=== PATIENT | female | born 1960 | race Caucasian/White ===

== ENCOUNTER 2018-07-03 07:59 | Observation (INO) ==
[2018-07-03] MEDS ORDERED: Nitroglycerin 1 INCH/GM PACKET TP ONE (08:24)
[2018-07-03] MEDS ORDERED: Aspirin 81 MG TAB.CHEW PO ONE (08:24)
--- NOTE | 2018-07-03 08:28 | Emergency Department Note ---
Disposition Clinical Impression: Chest pain Qualifiers: Chest pain type: unspecified Qualified Code(s): R07.9 - Chest pain, unspecified Disposition: Admitted As Inpatient Condition: Good Referrals: Brandon Gerber CNP [Primary Care Provider] - Forms: ED Satisfaction Letter Time of Disposition: 09:39 Chest Pain HPI - General Chief Complaint: ED Chest Pain Stated Complaint: dizzy pressure in chest Time Seen by Provider: 07/03/18 08:10 Source: patient Mode of arrival: ambulatory Limitations: no limitations Vital Signs Reviewed: Yes Nursing Notes Reviewed: Yes - History of Present Illness HPI Narrative: Initial showed temp shaky. Thought her blood sugar was low. Checked it and it was 200. Drank excess water. Then she began with the discomfort in her chest and took her blood pressure which was elevated. Pt complaint: chest pain Onset (ago): hour(s) (2) Time: 06:15 Duration: intermittent, other (Initial duration 15 minutes of more severe pain. Partially relieved with one nitroglycerin sublingual now returned "more light ") Onset: during exertion (Folding laundry) Pain Location: substernal Severity: moderate Severity scale (1-10): 0 Quality: tightness, heaviness, other (Pressure) Pain Radiation: none Improves with: nitroglycerin, rest Worsens with: exertion Context: other (First use of nitroglycerin and 4 years since she had her stent) Associated symptoms: Denies: vomiting, diaphoresis, dyspnea, sense of impending doom, syncope, palpitations, fever, cough, leg swelling Treatments prior to arrival chest pain: aspirin (Took usual morning meds including 81 mg aspirin) - Related Data Home Medications Medication Instructions Recorded Confirmed Aspirin Enteric Coated [Aspirin EC] 81 mg PO DAILY 06/28/15 07/03/18 Clopidogrel [Plavix] 75 mg PO DAILY 06/28/15 07/03/18 Ezetimibe [Zetia] 10 mg PO DAILY 06/28/15 07/03/18 Losartan/Hydrochlorothiazide 1 each PO DAILY 06/28/15 07/03/18 [Hyzaar 100-25 Tablet] Metformin HCl [Glumetza] 1,000 mg PO DAILY 06/28/15 07/03/18 Metoprolol [Lopressor] 25 mg PO BID 06/28/15 07/03/18 Nitroglycerin 0.4 mg SL Q5MIN 06/28/15 07/03/18 Ranitidine HCl [Zantac] 300 mg PO DAILY 06/28/15 07/03/18 Atorvastatin [Lipitor] 80 mg PO HS 10/13/15 07/03/18 Loratadine [Allergy Relief] 10 mg PO DAILY 07/03/18 07/03/18 SitaGLIPtin [Januvia] 100 mg PO DAILY 07/03/18 07/03/18 Allergies Allergy/AdvReac Type Severity Reaction Status Date / Time No Known Allergies Allergy Verified 06/28/15 15:48 All systems ED: reviewed and negative except as stated. Review of Systems: As Per HPI Chest Pain PMH - Past Medical History Medical history: Reports: coronary artery disease, diabetes, GERD, hypertension Surgical history: Reports: angioplasty/stent, hysterectomy Psychiatric history: Reports: no psych history CERAMIC ARTIST history: Reports: no CERAMIC ARTIST history - Social History Smoking Status: Current every day smoker Alcohol use: Reports: none Drug use: Reports: none Physical Exam Constitutional: Patient is oriented to person, place, and time. Skin color is pink. Appears well hydrated, body habitus normal . Non toxic appearing. Head: Normocephalic and atraumatic. External ear exam normal Nose: Nose normal. Mouth/Throat: Uvula is midline, oropharynx is clear and moist and mucous membranes are normal. Eyes: Conjunctivae nl, extraocular motions and lids are normal. Pupils are equal , round, and reactive to light. Neck: Normal range of motion and phonation normal. Neck supple. Cardiovascular: Normal rate, regular rhythm, normal heart sounds. Pulmonary/Chest: No Respiratory distress. Respiratory Effort normal and breath sounds clear. Abdominal: Soft. Normal appearance and bowel sounds are normal. no tenderness, no masses, no guarding, no rebound Musculoskeletal: Good distal pulses. Soft compartments. Brisk cap refill. Extremities: Normal range of motion.Intact peripheral pulses. No Edema. Extremity skin color nl, no calf tenderness or palpable cords. Neurological: GCS 15 Patient is alert and oriented without evidence of obvious motor deficits Skin: Skin is warm, dry and intact. color is normal, cap refill is quick Psychiatric: Patient has anxious mood and affect. Patient speech is normal and behavior is normal. Thought content normal. - General Limitations: no limitations General appearance: alert, in no apparent distress Course Course Narrative: The patient remained stable and pain-free throughout the remainder of her emergency department stay. I spoke with Dr. Connelly at 9:35 AM and the patient will be observed here in [place]. Vital Signs Temperature 97.8 F 07/03/18 08:06 Pulse Rate 64 07/03/18 08:06 Respiratory Rate 16 07/03/18 08:06 Blood Pressure 162/96 07/03/18 08:06 O2 Sat by Pulse Oximetry 95 07/03/18 08:06 Temperature 97.8 F 07/03/18 08:06 Pulse Rate 57 07/03/18 09:44 Respiratory Rate 16 07/03/18 09:44 Blood Pressure 119/67 07/03/18 09:44 O2 Sat by Pulse Oximetry 95 07/03/18 09:44 Oxygen Delivery Oxygen Delivery Room Air Chest Pain - MDM Narrative Medical decision making narrative: Concerning discomfort related to exertion and similar to previous OR relieved with nitroglycerin. Cardiac workup initiated. Patient currently pain free Care will be turned over to Dr. Pollard at change of shift - Medical Records Medical records reviewed: Yes I reviewed the patient's medical records. - Lab Data Lab results reviewed: Yes I reviewed the patient's lab results. Result diagrams: 07/03/18 08:40 07/03/18 08:40 Lab Results 07/03/18 07/03/18 07/03/18 Range/Units 08:40 08:40 08:40 WBC 15.2 H (4.3-11.1) K/mcL RBC 5.07 H (3.82-4.97) M/mcL Hgb 14.9 (11.5-15.4) g/dL Hct 43.4 (35.3-44.9) % MCV 85.6 (83.0-100.0) fL MCH 29.4 (28.0-33.3) pg MCHC 34.3 (31.6-35.5) g/dL RDW 13.3 (11.5-14.5) % Plt Count 359 (140-400) K/mcL MPV 9.6 (9.4-12.4) fL Immature Gran % 0.3 (0-4) % Seg Neutrophils % 74.1 % Lymphocytes % 19.9 % Monocytes % 4.1 % Eosinophils % 1.3 % Basophils % 0.3 % Neutrophils # 11.3 H (1.6-8.9) K/mcL Lymphocytes # 3.0 (0.6-4.6) K/mcL Monocytes # 0.6 (0.0-1.3) K/mcL Eosinophils # 0.2 (0.0-0.6) K/mcL Basophils # 0.1 (0.0-0.2) K/mcL PT 11.7 (9.4-12.1) Seconds INR 1.0 APTT 30.9 (26.0-36.0) Seconds Sodium 137 (136-145) mEq/L Potassium 3.3 L (3.5-5.1) mEq/L Chloride 104 (98-107) mEq/L Carbon Dioxide 25 (23-29) mEq/L BUN 18 (6-20) mg/dL Creatinine 0.78 (0.60-1.20) mg/dL Est GFR ( Amer) > 60 (> 60) Est GFR (Non-Af Amer) > 60 (> 60) BUN/Creatinine Ratio 23 (6-26) Glucose 151 H (70-105) mg/dL Calculated Osmolality 289 (280-300) Calcium 9.9 (8.6-10.3) mg/dL Troponin I < 0.03 (< 0.04) ng/mL - Radiology Data Radiology results reviewed: Yes I reviewed the patient's radiology results. Impression portable chest from radiology "no active pulmonary disease" - EKG Data EKG attestation: Yes I reviewed and interpreted this EKG. EKG results narrative: ECG reveals sinus rhythm with rate of 62. Q waves lead 3. Inverted T's lead V2 and V3 and slight ST depression V4 V5 less than a millimeter. No evidence of acute ST elevation or acute ischemia I repeated the ECG at 844 because the first one showed the slight ST depression laterally. Second EKG is similar. The patient remains pain-free. Sinus Normal access Inverted T waves V2 through V5 I compared the previous ECG to current abdomen they are similar Heart Score - Score History: Highly Suspicious EKG: Non Specific repolarisation Disturbance Age: 45-65 Risk Factors: Equal/Greater than 3 risk factor or history of atherosclerotic disease
[2018-07-03 08:48] LABS: Basophils # 0.1 K/mcL (0.0-0.2); Basophils % 0.3 %; Eosinophils # 0.2 K/mcL (0.0-0.6); Eosinophils % 1.3 %; Hematocrit 43.4 % (35.3-44.9); Hemoglobin 14.9 g/dL (11.5-15.4); Immature Granulocytes % 0.3 % (0-4); Lymphocytes % 19.9 %; Mean Corpuscular HGB Conc 34.3 g/dL (31.6-35.5); Mean Corpuscular Hemoglobin 29.4 pg (28.0-33.3); Mean Corpuscular Volume 85.6 fL (83.0-100.0); Mean Platelet Volume 9.6 fL (9.4-12.4); Monocytes # 0.6 K/mcL (0.0-1.3); Monocytes % 4.1 %; Neutrophils # 11.3 K/mcL (1.6-8.9); Platelet Count 359 K/mcL (140-400); Red Blood Count 5.07 M/mcL (3.82-4.97); Red Cell Distribution Width 13.3 % (11.5-14.5); Segmented Neutrophils % 74.1 %
[2018-07-03 08:55] LABS: Prothrombin Time 11.7 Seconds (9.4-12.1)
[2018-07-03 08:58] LABS: Activated Partial Thrombo Time 30.9 Seconds (26.0-36.0)
[2018-07-03 09:02] LABS: BUN/Creatinine Ratio 23 (6-26); Blood Urea Nitrogen 18 mg/dL (6-20); Calcium 9.9 mg/dL (8.6-10.3); Carbon Dioxide 25 mEq/L (23-29); Chloride 104 mEq/L (98-107); Glucose 151 mg/dL (70-105); Osmolality,Calculated 289 (280-300); Potassium 3.3 mEq/L (3.5-5.1); Sodium 137 mEq/L (136-145); eGFR For Non-African Americans > 60 (> 60)
[2018-07-03 09:06] LABS: Troponin I < 0.03 ng/mL (< 0.04)
[2018-07-03] MEDS ORDERED: Naloxone 0.4 MG/ML INJ IVP PRN (09:54)
[2018-07-03 10:31] LABS: Bilirubin,Urine Negative (Negative); Blood,Urine Negative (Negative); Clarity,Urine Clear (Clear); Color,Urine Yellow (Yellow); Glucose,Urine (UA) Normal (Normal); Ketones,Urine Negative (Negative); Leukocyte Esterase,Urine Negative (Negative); Nitrite,Urine Negative (Negative); Protein,Urine Negative (Neg-Trace); Urobilinogen,Urine Normal (Normal)
--- NOTE | 2018-07-03 12:02 | Internal Med History&Physical ---
Date of Encounter: 07/03/18 Time of Encounter: 12:00 Assessment and Plan (1) Chest pain Current visit: Yes Status: Acute We will observe for a few hours of monitoring. 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 She understands treatment of coronary symptoms and we encouraged her to present should she have additional symptoms. Qualifiers: Chest pain type: unspecified Qualified Code(s): R07.9 - Chest pain, unspecified (2) Dizziness Current visit: Yes Status: Acute Etiology is uncertain. Will follow and if negative workup for myocardial disease, will have her follow with her primary care provider. (3) Essential hypertension Current visit: Yes Status: Acute Clinically stable. We will continue home regimen and follow. (4) Gastroesophageal reflux disease Current visit: Yes Status: Acute Insert clinically stable. Qualifiers: Esophagitis presence: esophagitis presence not specified Qualified Code(s) : K21.9 - Gastro-esophageal reflux disease without esophagitis (5) Hyperlipidemia Current visit: Yes Status: Acute The patient is treated with a statin for her coronary disease. 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 Fisher is a 58 year old female who was in her usual state of health until 6 this morning. She was feeling okay but felt a little weak and dizzy. She checked her blood sugar which was 200 and she did not have any explanation. She developed some pressure in her mid sternal region and had no radiation of same. She fell only slightly short of breath but no sweating, chills, flushing , etc. There were no palpitations. She took a nitroglycerin and this seemed to relieve her discomfort partially but because she still felt abnormal, she found someone to take care of [id number]-old granddaughter and came to the emergency room. I reviewed her history. She has coronary disease with a stent placed about 5 years ago, July 2013. She had palpitations as her coronary symptoms and none since then. She is treated for hyperlipidemia since she was known to have coronary disease. She has hypertension this is been fairly well controlled on medical and her other medications. She has 2 years of diabetes treated with Glucophage and Januvia. She takes preventive aspirin 81 mg daily. She continues to smoke about one half pack per day. She has been smoking for about 30 years or more. She knows she needs to quit and we discussed this at length. Her does not smoke. She denies use of street drugs, marijuana. 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 H used to keep her awake snoring and now wears CPAP so she is familiar with it. She states that she wakes herself up frequently, snoring. I advised her to speak with her primary care provider, Brandon Gerber CNP, regarding sleep apnea and a test for same. She wears full dentures because of removal of her teeth. She has reflux symptoms which is prevented by an acid suppressant. Past Med Surg Social Fam HX - Past Medical History Source: patient Medical history: coronary artery disease, diabetes, GERD, hypertension Psychiatric history: no psych history - Past Surgical History Surgical History: angioplasty/stent, hysterectomy Additional surgical history: Bowel surgery, heart cath, rt coronary stent - Social History Smoking Status: Current every day smoker Smokeless Tobacco Status: No Alcohol use: none Drug use: none Internal Medicine - H&P: Meds Aspirin Enteric Coated [Aspirin EC] 81 mg PO DAILY 06/28/15 [History] Clopidogrel [Plavix] 75 mg PO DAILY 06/28/15 [History] Ezetimibe [Zetia] 10 mg PO DAILY 06/28/15 [History] Losartan/Hydrochlorothiazide [Hyzaar 100-25 Tablet] 1 each PO DAILY 06/28/15 [ History] Metformin HCl [Glumetza] 1,000 mg PO DAILY 06/28/15 [History] Metoprolol [Lopressor] 25 mg PO BID 06/28/15 [History] Nitroglycerin 0.4 mg SL Q5MIN 06/28/15 [History] Ranitidine HCl [Zantac] 300 mg PO DAILY 06/28/15 [History] Atorvastatin [Lipitor] 80 mg PO HS 10/13/15 [History] Loratadine [Allergy Relief] 10 mg PO DAILY 07/03/18 [History] SitaGLIPtin [Januvia] 100 mg PO DAILY 07/03/18 [History] 3 Allergy/AdvReac Type Severity Reaction Status Date / Time No Known Allergies Allergy Verified 06/28/15 15:48 All Systems PM: Patient has no complaint of chest discomfort, dyspnea, orthopnea, breathing problems, palpitations, nausea or vomiting, constipation or diarrhea, other changes in bowel habits, heartburn, difficulty with urination, kidney problems or kidney stones, fevers chills or sweats, rash or itching, seizures, headache or lightheadedness, heat or cold intolerance, blood problems or anemia, or other new complaints, except as mentioned above. Review of systems is otherwise negative. - Constitutional Vitals: Temp Pulse Resp BP Pulse Ox 98.4 F 60 16 120/75 95 07/03/18 09:54 07/03/18 09:54 07/03/18 09:54 07/03/18 09:54 07/03/18 09:44 Exam: Examination: (Except as mentioned above): General: In no apparent distress, alert and oriented 3. Head: Atraumatic and normocephalic. Eyes: Extraocular muscles are intact, pupils equal round and reactive to light and accommodation. Sclerae anicteric. Ears: External ears are normal to inspection and hearing is grossly normal. Nose: Patent without lesion noted. Mouth: No intraoral lesions seen. He is edentulous with full dentures. Neck: Supple with trachea midline. There is no thyromegaly or adenopathy and carotids are 2+ without bruit heard. Respiratory: No use of accessory muscles. Lungs are clear throughout. Normal airflow. Cardiovascular: Regular rate and rhythm without murmur appreciated. Abdomen: Bowel sounds are normal. No hepatosplenomegaly masses or tenderness. Obese and therefore difficult to palpate deeply. Extremities: No cyanosis clubbing or edema. Neurological: A and O 3. Cranial nerves II through XII are intact. No focal deficits and no abnormal movements or postures. Skin: Warm and non-diaphoretic with no lesions noted. Diffuse efilides. Breasts, pelvic and rectal: Not examined. Internal Med - H&P Results - Labs CBC & Chem 7: 07/03/18 08:40 07/03/18 08:40 Labs: Short CBC 07/03/18 Range/Units 08:40 WBC 15.2 H (4.3-11.1) K/mcL Hgb 14.9 (11.5-15.4) g/dL Hct 43.4 (35.3-44.9) % Plt Count 359 (140-400) K/mcL Neutrophils # 11.3 H (1.6-8.9) K/mcL BMP 07/03/18 08:40 Sodium 137 Potassium 3.3 L Chloride 104 Carbon Dioxide 25 BUN 18 Creatinine 0.78 Glucose 151 H Calcium 9.9 Cardiac Enzymes 07/03/18 Range/Units 08:40 Troponin I < 0.03 (< 0.04) ng/mL Urine 07/03/18 Range/Units 09:34 Urine Color Yellow (Yellow) Urine Clarity Clear (Clear) Urine pH 7.0 (5.0-8.0) pH Units Ur Specific [place] 1.010 (1.010-1.025) Urine Protein Negative (Neg-Trace) mg/dL Urine Glucose (UA) Normal (Normal) mg/dL - Impressions ITS Impressions Chest X-Ray 07/03/18 08:24 IMPRESSION: 1. No active pulmonary disease. D/ / Kareem Ivan MD / Kareem Ivan MD Interpreting Provider: Kareem Ivan MD
[2018-07-03 18:55] VITALS: BP 113/71
[2018-07-04] MEDS ORDERED: *HR* Metformin 500 MG TABLET PO SCH (08:00)
[2018-07-04] MEDS ORDERED: Famotidine 20 MG TABLET PO SCH (08:00)
[2018-07-04] MEDS ORDERED: Loratadine 10 MG TABLET PO SCH (09:00)
[2018-07-04] MEDS ORDERED: Losartan/HCTZ 50-12.5 TABLET PO SCH (09:00)
[2018-07-04] MEDS ORDERED: Aspirin Enteric Coated 81 MG Tablet PO SCH (09:00)
[2018-07-04] MEDS ORDERED: *HR* SitaGLIPtin 100 MG TABLET PO SCH (09:00)
--- NOTE | 2018-07-04 15:57 | Discharge Summary ---
Date of Encounter: 07/04/18 Time of Encounter: 15:55 - Discharge Diagnosis (1) Chest pain Priority: Primary Status: Acute Qualifiers: Chest pain type: unspecified Qualified Code(s): R07.9 - Chest pain, unspecified (2) Dizziness Priority: Secondary Status: Acute (3) Essential hypertension Priority: Secondary Status: Acute (4) Gastroesophageal reflux disease Priority: Secondary Status: Acute Qualifiers: Esophagitis presence: esophagitis presence not specified Qualified Code(s) : K21.9 - Gastro-esophageal reflux disease without esophagitis (5) Hyperlipidemia Priority: Secondary Status: Acute Qualifiers: Hyperlipidemia type: unspecified Qualified Code(s): E78.5 - Hyperlipidemia , unspecified (6) Diabetes type 2, controlled Priority: Secondary Status: Acute Qualifiers: Diabetes mellitus intermediate insulin use: without intermediate use Diabetes mellitus complication status: with unspecified complications Qualified Code(s) : E11.8 - Type 2 diabetes mellitus with unspecified complications Hospital course: Ms. Fisher is a 58 year old female with a history of atypical chest pain. Her troponins were negative and she was clinically stable. She preferred to go home late last evening so she was discharged without being seen by me. She was seen earlier in the day. Please see the H&P note from yesterday. - Time Spent with Patient Total time spent providing and/or coordinating discharge services: - Discharge Medications Home Medications: Aspirin Enteric Coated [Aspirin EC] 81 mg PO DAILY 06/28/15 [History] Clopidogrel [Plavix] 75 mg PO DAILY 06/28/15 [History] Ezetimibe [Zetia] 10 mg PO DAILY 06/28/15 [History] Losartan/Hydrochlorothiazide [Hyzaar 100-25 Tablet] 1 each PO DAILY 06/28/15 [ History] Metformin HCl [Glumetza] 1,000 mg PO DAILY 06/28/15 [History] Metoprolol [Lopressor] 25 mg PO BID 06/28/15 [History] Nitroglycerin 0.4 mg SL Q5MIN 06/28/15 [History] Ranitidine HCl [Zantac] 300 mg PO DAILY 06/28/15 [History] Atorvastatin [Lipitor] 80 mg PO HS 10/13/15 [History] SitaGLIPtin [Januvia] 100 mg PO DAILY 07/03/18 [History] Allergies/Adverse Reactions: 3 Allergy/AdvReac Type Severity Reaction Status Date / Time No Known Allergies Allergy Verified 06/28/15 15:48 Date of admission: 07/03/18 08:00 Primary care physician: Brandon Gerber CNP - Constitutional Vitals: Temp Pulse Resp BP Pulse Ox 98.1 F 66 16 113/71 94 07/03/18 18:55 07/03/18 18:55 07/03/18 18:55 07/03/18 18:55 07/03/18 19:43 - Patient Status Disposition: Home, Self-Care Condition: Good - Discharge Instructions Instructions: Nitroglycerin (By mouth), Angina (DC), Chest Pain (DC), Anxiety ( DC)
--- NOTE | 2018-07-05 15:25 | Electrocardiograph Report ---
[place] [id number] Test Date: 2018-07-03 Pat Name: Tiffani Fisher Department: 2000 Room: 118 Gender: F Director Special Education: : 1960 Requested By: Tory Alicea Order Number: [id number] Reading MD: Candace Singh Measurements Intervals [place] Rate: 62 P: 43 [place]: 169 QRS: 5 QRSD: 93 T: 23 QT: 394 QTc: 400 Interpretive Statements SINUS RHYTHM NONSPECIFIC T-WAVE ABNORMALITY Electronically Signed On 07-05-2018 15:23:29 EDT by Candace Singh
--- NOTE | 2018-07-05 15:25 | Electrocardiograph Report ---
[address] [address] Test Date: 2018-07-03 Pat Name: Tiffani Fisher Department: 2000 Room: 118 Gender: F System Dispatcher: : 1960 Requested By: Tory Alicea Order Number: [id number] Reading MD: Candace Singh Measurements Intervals [place] Rate: 57 P: 44 [place]: 172 QRS: 6 QRSD: 93 T: 15 QT: 411 QTc: 406 Interpretive Statements SINUS BRADYCARDIA NONSPECIFIC ST & T-WAVE ABNORMALITY Electronically Signed On 07-05-2018 15:23:46 EDT by Candace Singh
== END 2018-07-03 21:43 | disposition home or self-care (01) ==
LOC: INPGRE 07:59 → EMEROOGRE 07:59 → INPGRE 09:42

== ENCOUNTER 2022-02-08 09:06 | Observation (INO) ==
[2022-02-08] MEDS ORDERED: 0.9 % Sodium Chloride 500 ML IVC ONE (09:18)
[2022-02-08] MEDS ORDERED: Aspirin 81 MG TAB.CHEW PO ONE (09:18)
[2022-02-08 09:32] LABS: Basophils # 0.1 K/mcL (0.0-0.2); Basophils % 0.9 %; Eosinophils # 0.7 K/mcL (0.0-0.6); Eosinophils % 5.8 %; Hematocrit 45.8 % (35.3-44.9); Hemoglobin 15.2 g/dL (11.5-15.4); Immature Granulocytes % 0.2 % (0-4); Lymphocytes # 4.3 K/mcL (0.6-4.6); Lymphocytes % 37.8 %; Mean Corpuscular HGB Conc 33.2 g/dL (31.6-35.5); Mean Corpuscular Hemoglobin 29.6 pg (28.0-33.3); Mean Corpuscular Volume 89.3 fL (83.0-100.0); Mean Platelet Volume 9.7 fL (9.4-12.4); Monocytes # 0.7 K/mcL (0.0-1.3); Monocytes % 6.4 %; Neutrophils # 5.6 K/mcL (1.6-8.9); Platelet Count 355 K/mcL (140-400); Red Blood Count 5.13 M/mcL (3.82-4.97); Red Cell Distribution Width 13.2 % (11.5-14.5); Segmented Neutrophils % 48.9 %; White Blood Count 11.4 K/mcL (4.3-11.1)
[2022-02-08 09:41] LABS: Bilirubin,Urine Negative (Negative); Blood,Urine Moderate (Negative); Clarity,Urine Clear (Clear); Color,Urine Yellow (Yellow); Glucose,Urine (UA) >=1000 mg/dL (Normal); Ketones,Urine Negative (Negative); Leukocyte Esterase,Urine Negative (Negative); Nitrite,Urine Negative (Negative); PH,Urine 5.5 pH Units (5.0-8.0); Protein,Urine 30 mg/dL (Neg-Trace); Specific Gravity,Urine >= 1.030 (1.010-1.025); Urobilinogen,Urine Normal (Normal)
[2022-02-08 09:43] LABS: Prothrombin Time 11.5 Seconds (9.4-12.1)
[2022-02-08 09:45] LABS: BUN/Creatinine Ratio 21 (6-26); Blood Urea Nitrogen 20 mg/dL (8-23); Calcium 9.8 mg/dL (8.6-10.3); Carbon Dioxide 29 mEq/L (23-29); Chloride 101 mEq/L (98-107); Glucose 314 mg/dL (70-105); Osmolality,Calculated 301 (280-300); Potassium 4.3 mEq/L (3.5-5.1); Sodium 138 mEq/L (136-145); eGFR For African Americans > 60 (> 60); eGFR For Non-African Americans 58 (> 60)
[2022-02-08 09:48] LABS: Bacteria,Urine Few per hpf (None-Few); RBC,Urine 15-30 per hpf (0-3); Squamous Epithelial Cell,Urine Few per hpf (None-Few); WBC,Urine 0-3 per hpf (0-3)
[2022-02-08 09:49] LABS: Troponin I < 0.03 ng/mL (< 0.04)
[2022-02-08] MEDS ORDERED: Ondansetron 4 MG/2 ML VIAL IVP PRN (10:12)
[2022-02-08] MEDS ORDERED: Acetaminophen 325 MG TABLET PO PRN (10:12)
[2022-02-08] MEDS ORDERED: Naloxone 0.4 MG/ML INJ IVP PRN (10:12)
[2022-02-08] MEDS ORDERED: Perflutren Lipid Microsphere 1.3 ML in 0.9 % Sodium Chloride 8.7 ML IVP PRN (10:15)
[2022-02-08] MEDS ORDERED: Nitroglycerin 0.4 MG TAB.SUBL SL PRN (10:15)
[2022-02-08] MEDS ORDERED: GI Cocktail 40 ML EACH PO ONE ×2 (10:20→13:35)
[2022-02-08] MEDS ORDERED: D5% in Water 1,000 ML IVC PRN (11:10)
[2022-02-08] MEDS ORDERED: *HR* Dextrose 50 % in Water (Syg) 50 ML SYRINGE IVP PRN (11:10)
[2022-02-08] MEDS ORDERED: Dextrose 4 GM Chewable Tablets PO PRN ×2 (11:10)
[2022-02-08] MEDS ORDERED: Losartan/HCTZ 50-12.5 TABLET PO SCH (13:00)
[2022-02-08] MEDS ORDERED: *HR* SitaGLIPtin 100 MG TABLET PO SCH (13:00)
[2022-02-08] MEDS: Famotidine 20 MG/2 ML VIAL IVP SCH ×2 (13:03→20:47)
[2022-02-08] MEDS: Insulin LISPRO 300 UNITS/3 ML VIAL SUBQ SCH ×2 (13:04→16:53)
[2022-02-08] MEDS ORDERED: Nitroglycerin 1 INCH/GM PACKET TP ONE (18:50)
[2022-02-08] MEDS ORDERED: *HR* Heparin 5,000 UNIT/ML VIAL IVP ONE (19:05)
[2022-02-08] MEDS ORDERED: Heparin 25,000UNIT/250ML 1/2NS 25,000 UNIT/250 ML IV.SOLN IVC SCH (19:15)
[2022-02-08 20:32] VITALS: RESP 18
[2022-02-08] MEDS ORDERED: Insulin LISPRO 300 UNITS/3 ML VIAL SUBQ SCH (21:00)
[2022-02-09 00:01] VITALS: BP 143/84; PULSE 59; TEMP 98.3; O2SAT 95
[2022-02-09] MEDS ORDERED: *HR* Enoxaparin 40 MG/0.4 ML SYRINGE SQ SCH (06:00)
[2022-02-09] MEDS ORDERED: Aspirin Enteric Coated 81 MG Tablet PO SCH (09:00)
[2022-02-09 10:11] LABS: Estimated Average Glucose 246 mg/dl; Hemoglobin A1C 10.2 %
== END 2022-02-09 01:11 | disposition short-term general hospital (02) ==
LOC: EMEROOGRE 09:06 → INPGRE 09:06
PROVIDERS: ADMIT Family Medicine; ATTEND Family Medicine